=== PATIENT | female | born 1960 ===

== ENCOUNTER 2017-11-21 00:18 | Emergency (ER) | payer BC ==
--- NOTE | 2017-11-21 00:52 | ED PDOC ---
Arrival/HPI - General Historian: Patient <Reva Worrell A - Last Filed: 11/21/17 00:55> <Nura Lin - Last Filed: 11/21/17 01:35> - General Time Seen by Provider: 11/21/17 00:49 - History of Present Illness Narrative History of Present Illness (Text): 11/21/17 00:50 57yo female with past medical history of hypertension who present with complaint of insect bite to her right hand tonight. States the area was itchy before and she took Benadryl and Advil. States the itching is currently resolved and she have mild swelling to the area. She denies fever, chills, shortness of breath, drooling, tongue swelling, chest pain, any other complaint. (Reva Worrell A) Past Medical History - Provider Review Nursing Documentation Reviewed: Yes - Cardiac Hx Hypertension: Yes - Pulmonary Hx Asthma: Yes - Musculoskeletal/Rheumatological Hx Arthritis: Yes (cervical area) - Psychiatric Hx Substance Use: No - Anesthesia Hx Anesthesia: Yes <Reva Worrell - Last Filed: 11/21/17 00:55> Family/Social History - Physician Review Nursing Documentation Reviewed: Yes Family/Social History: Unknown Family HX Smoking Status: Never Smoked Hx Alcohol Use: No Hx Substance Use: No <Reva Worrell A - Last Filed: 11/21/17 00:55> Allergies/Home Meds <Reva Worrell - Last Filed: 11/21/17 00:55> <Nura Lin - Last Filed: 11/21/17 01:35> Allergies/Adverse Reactions: Allergies codeine Allergy (Verified 08/15/17 23:25) erythromycin base Allergy (Verified 08/15/17 23:25) Penicillins Allergy (Verified 08/15/17 23:25) Sulfa (Sulfonamide Antibiotics) Allergy (Verified 08/15/17 23:25) Home Medications: Home Meds Medication Instructions Recorded Confirmed Losartan 08/15/17 Proair Hfa 08/15/17 08/15/17 Singulair 08/15/17 Review of Systems - Physician Review All systems were reviewed & negative as marked: Yes - Review of Systems Constitutional: Normal Eyes: Normal ENT: Normal Respiratory: Normal Cardiovascular: Normal Gastrointestinal: Normal Genitourinary Female: Normal Musculoskeletal: Normal Skin: Other (Insect bite to right hand) Neurological: Normal Endocrine: Normal Hemo/Lymphatic: Normal Psychiatric: Normal <Reva Worrell A - Last Filed: 11/21/17 00:55> Physical Exam Vital Signs Reviewed: Yes Temperature: Afebrile Blood Pressure: Normal Pulse: Regular Respiratory Rate: Normal Appearance: Positive for: Well-Appearing, Non-Toxic, Comfortable Pain Distress: None Mental Status: Positive for: Alert and Oriented X 3 - Systems Exam Head: Present: Atraumatic, Normocephalic Pupils: Present: PERRL Extroacular Muscles: Present: EOMI Conjunctiva: Present: Normal Mouth: Present: Moist Mucous Membranes Neck: Present: Normal Range of Motion Respiratory/Chest: Present: Clear to Auscultation, Good Air Exchange. No: Respiratory Distress, Accessory Muscle Use Cardiovascular: Present: Regular Rate and Rhythm, Normal S1, S2. No: Murmurs Abdomen: No: Tenderness, Distention, Peritoneal Signs Back: Present: Normal Inspection Upper Extremity: Present: Normal ROM, NORMAL PULSES, Swelling (Mild swelling between the first and 2nd fingers noted on the volar aspect), Neurovascularly Intact. No: Cyanosis, Edema, Tenderness, Erythema Lower Extremity: Present: Normal Inspection. No: Edema Neurological: Present: GCS=15, CN II-XII Intact, Speech Normal Skin: Present: Warm, Dry, Normal Color, Other. 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 <Nura Lin - Last Filed: 11/21/17 01:35> Disposition/Present on Arrival - Present on Arrival Any Indicators Present on Arrival: No History of DVT/PE: No History of Uncontrolled Diabetes: No Urinary Catheter: No History of Decub. Ulcer: No - Disposition Have Diagnosis and Disposition been Completed?: No Disposition Time: 01:10 Patient Plan: Discharge <Reva Worrell - Last Filed: 11/21/17 00:55> <Nura Lin - Last Filed: 11/21/17 01:35> - Disposition Diagnosis: Insect bite Disposition: HOME/ ROUTINE Condition: STABLE Discharge Instructions (ExitCare): Insect Bites and Stings Additional Instructions: Follow up with your doctor Return to Emergency department for any new or worsening symptoms Prescriptions: Clindamycin [Cleocin] 150 mg PO TID #21 cap Famotidine [Pepcid] 20 mg PO DAILY #8 tab predniSONE [Prednisone] 10 mg PO BID #6 tab Referrals: Aisha Villatoro MD [Staff Provider] - Follow up with primary
[2017-11-21 00:55] VITALS: BMI 33.3
[2017-11-21 01:11] VITALS: BP 145/88; PULSE 65; RESP 18; TEMP 98.5; O2SAT 98
== END 2017-11-21 01:35 | disposition home or self-care (01) ==
LOC: ED 00:18
DX: S60.561A Insect bite (nonvenomous) of right hand, initial encounter (principal); W57.XXXA Bitten or stung by nonvenomous insect and other nonvenomous arthropods, initial encounter; Y92.9 Unspecified place or not applicable

== ENCOUNTER 2017-12-28 21:25 | Emergency (ER) | payer BC ==
[2017-12-28 21:25] VITALS: BMI 33.3
--- NOTE | 2017-12-28 22:25 | ED PDOC ---
Arrival/HPI - General Chief Complaint: Allergic Reaction Time Seen by Provider: 12/28/17 22:05 - History of Present Illness Narrative History of Present Illness (Text): 12/28/17 22:21 57 F with pmhx of htn and asthma presents to the ED with chief complaint of lightheadedness, flushed feeling, onset approx 630 pm today, associated with a tingling sensation in her throat. Patient states that she was prescribed valsartan today by her pcp, took dose at approx 3 pm. Patient reports that she had a recent trip to an ER while on vacation, was not fully seen and treated as the wait was "longer than 30 minutes", took benadryl and went home. Patient denies any dyspnea, no palpitations, no chest pain/discomfort, no diaphoresis, no cough or wheezing, no rash, no throat/pharyngeal swelling, no itchiness. PCP: Dr. Errol Rosa 12/28/17 22:34 PMHx: HTN, Asthma PFHx: +heart disease PSHx: Right Breast Lumpectomy SocHx: negative Allergies: reviewed 12/28/17 22:35 Past Medical History - Reproductive Menopause: Yes - Cardiac Hx Hypertension: Yes - Pulmonary Hx Asthma: Yes - Musculoskeletal/Rheumatological Hx Arthritis: Yes (cervical area) - Psychiatric Hx Substance Use: No - Anesthesia Hx Anesthesia: Yes Family/Social History Family/Social History: No Known Family HX Smoking Status: Never Smoked Hx Alcohol Use: No Hx Substance Use: No Allergies/Home Meds Allergies/Adverse Reactions: Allergies codeine Allergy (Verified 12/28/17 21:48) SHORTNESS OF BREATH erythromycin base Allergy (Verified 12/28/17 21:48) RASH Penicillins Allergy (Verified 12/28/17 21:48) RASH Sulfa (Sulfonamide Antibiotics) Allergy (Verified 12/28/17 21:48) RASH irbesartan Adverse Reaction (Verified 12/28/17 21:48) RASH nebivolol [From Bystolic] Adverse Reaction (Verified 12/28/17 21:48) RASH Home Medications: Home Meds Medication Instructions Recorded Confirmed Valsartan [Diovan] 1 tab PO HS 12/28/17 12/28/17 Review of Systems - Physician Review All systems were reviewed & negative as marked: Yes Physical Exam - Physical Exam Narrative Physical Exam (Text): 12/28/17 22:31 Gen: VS reviewed, alert, well developed, well nourished, nontoxic, mild distress ENT: normal pharynx, no swelling of the tongue or posterior pharynx Eye: EOMI, PERRL Neck: no JVD, supple, no adenopathy CV: regular rate, regular rhythm, no rubs,no murmur, no gallops, S1, S2, pulses equal and strong Pulm: no distress, clear to auscultation, no wheeze, no rhonchi, breath sounds equal, no rales Abd: soft, nontender, no guarding, no rebound, no rigidity, normal bowel sounds Ext: no edema Skin: good color, no rash, no cyanosis Psych: responds appropriately to questions, normal affect Neuro: oriented x3, CN2-12 intact grossly, motor intact, sensation intact Vital Signs Temp Pulse Resp BP Pulse Ox 12/29/17 00:42 98.2 F 71 17 148/78 99 12/28/17 22:00 72 17 158/72 H 99 12/28/17 21:40 98.1 F 68 20 163/80 H 98 Medical Decision Making ED Course and Treatment: 12/28/17 22:32 patient seen for near syncopal event, will check labs, cxr, ekg and place on property underwriter. no fhx of sudden cardiac . 12/28/17 23:[address] price - Lab Interpretations Lab Results: 12/28/17 23:25 12/28/17 23:25 Lab Results 12/28/17 23:25: Sodium 144, Potassium 5.0, Chloride 105, Carbon Dioxide 27, Anion Gap 17, BUN 23 H, Creatinine 0.7, Est GFR ( Amer) > 60, Est GFR ( Non-Af Amer) > 60, Random Glucose 100, Calcium 10.6 H, Magnesium 2.2, Total Bilirubin 0.4, AST 18, ALT 22, Alkaline Phosphatase 65, Troponin I < 0.01, NT- Pro-B Natriuret Pep 50.3, Total Protein 7.9, Albumin 4.8, Globulin 3.1, Albumin/ Globulin Ratio 1.5 12/28/17 23:25: PT 12.0, INR 1.05, APTT 30.3 12/28/17 23:25: WBC 10.0, RBC 4.73, Hgb 13.4, Hct 40.3, MCV 85.2, MCH 28.3, MCHC 33.3, RDW 13.2, Plt Count 380, MPV 11.2 H, Gran % 57.8, Lymph % (Auto) 35.5 H, [place] % (Auto) 5.5, Eos % (Auto) 1.0 L, Baso % (Auto) 0.2, Gran # 5.80, Lymph # (Auto) 3.6 H, [place] # (Auto) 0.6, Eos # (Auto) 0.1, Baso # (Auto) 0.02 - RAD Interpretation Narrative RAD Interpretations (Text): 12/28/17 23:12 cxr my read: no focal infiltrate, no ptx, cardiomegaly Radiology Orders: 12/28/17 22:06 CHEST PORTABLE [RAD] Stat Administrative Support Clerk: ED Physician Disposition/Present on Arrival - Present on Arrival Any Indicators Present on Arrival: No History of DVT/PE: No History of Uncontrolled Diabetes: No Urinary Catheter: No History of Decub. Ulcer: No History Surgical Site Infection Following: None - Disposition Have Diagnosis and Disposition been Completed?: Yes Diagnosis: Medication reaction Disposition: HOME/ ROUTINE Disposition Time: 19:33 Condition: IMPROVED Discharge Instructions (ExitCare): Adverse Drug Reactions, Adult (DC) Referrals: Errol Rosa DO [Family Provider] - Follow up with primary Forms: [employer] (Divehi)
--- NOTE | 2017-12-28 23:29 | ED PDOC ---
Physical Exam Vital Signs Reviewed: Yes Vital Signs Temp Pulse Resp BP Pulse Ox 12/28/17 21:40 98.1 F 68 20 163/80 H 98 Temperature: Afebrile Blood Pressure: Normal Pulse: Regular Respiratory Rate: Normal Appearance: Positive for: Well-Appearing, Non-Toxic, Comfortable Pain Distress: None Mental Status: Positive for: Alert and Oriented X 3 Medical Decision Making ED Course and Treatment: 12/28/17 23:26 Near Syncope Pending EKG, pending labs, Discussion with Dr. Rosa 12/29/17 00:19 Pending labs and callback from Dr. Rosa 12/29/17 00:[address] Rosa, and he agrees with plan of management to discharge. He will see patient in the morning, pending hematology results. 12/29/17 00:37 Labs reviewed. - Lab Interpretations Lab Results: 12/28/17 23:25 12/28/17 23:25 Lab Results 12/28/17 23:25: Sodium 144, Potassium 5.0, Chloride 105, Carbon Dioxide 27, Anion Gap 17, BUN 23 H, Creatinine 0.7, Est GFR ( Amer) > 60, Est GFR ( Non-Af Amer) > 60, Random Glucose 100, Calcium 10.6 H, Magnesium 2.2, Total Bilirubin 0.4, AST 18, ALT 22, Alkaline Phosphatase 65, Troponin I < 0.01, NT- Pro-B Natriuret Pep 50.3, Total Protein 7.9, Albumin 4.8, Globulin 3.1, Albumin/ Globulin Ratio 1.5 12/28/17 23:25: PT 12.0, INR 1.05, APTT 30.3 12/28/17 23:25: WBC 10.0, RBC 4.73, Hgb 13.4, Hct 40.3, MCV 85.2, MCH 28.3, MCHC 33.3, RDW 13.2, Plt Count 380, MPV 11.2 H, Gran % 57.8, Lymph % (Auto) 35.5 H, [place] % (Auto) 5.5, Eos % (Auto) 1.0 L, Baso % (Auto) 0.2, Gran # 5.80, Lymph # (Auto) 3.6 H, [place] # (Auto) 0.6, Eos # (Auto) 0.1, Baso # (Auto) 0.02 - RAD Interpretation Radiology Orders: 12/28/17 22:06 CHEST PORTABLE [RAD] Stat - Scribe Statement The provider has reviewed the documentation as recorded by the Scribe Carlos Mckeon All medical record entries made by the Scribe were at my direction and personally dictated by me. I have reviewed the chart and agree that the record accurately reflects my personal performance of the history, physical exam, medical decision making, and the department course for this patient. I have also personally directed, reviewed, and agree with the discharge instructions and disposition. Disposition/Present on Arrival - Present on Arrival Any Indicators Present on Arrival: No History of DVT/PE: No History of Uncontrolled Diabetes: No Urinary Catheter: No History of Decub. Ulcer: No History Surgical Site Infection Following: None - Disposition Have Diagnosis and Disposition been Completed?: Yes Diagnosis: Medication reaction Disposition: HOME/ ROUTINE Disposition Time: 00:34 Patient Plan: Discharge Discharge Instructions (ExitCare): Adverse Drug Reactions, Adult (DC) Referrals: Errol Rosa DO [Family Provider] - Follow up with primary Forms: [employer] ([place]i)
[2017-12-29 00:14] LABS: BASO # 0.02 K/mm3 (0.0-2.0); BASO % 0.2 % (0.0-3.0); EOS # 0.1 (0.0-0.7); GRAN # 5.8 (1.4-6.5); GRAN % 57.8 % (50.0-68.0); HEMOGLOBIN 13.4 g/dL (12.0-16.0); LYMPH # 3.6 (1.2-3.4); LYMPH % 35.5 % (22.0-35.0); MEAN CELL VOLUME 85.2 fl (80.0-105.0); MEAN CORPUSCULAR HEMOGLOBIN 28.3 pg (25.0-35.0); MEAN CORPUSCULAR HGB CONC 33.3 g/dl (31.0-37.0); MEAN PLATELET VOLUME 11.2 fl (7.0-11.0); MONO # 0.6 (0.1-0.6); MONO % 5.5 % (1.0-6.0); RBC 4.73 10^6/uL (3.5-6.1); RED CELL DISTRIBUTION WIDTH 13.2 % (11.5-14.5)
[2017-12-29 00:16] LABS: INR 1.05; PARTIAL THROMBOPLASTIN TIME 30.3 Seconds (25.1-36.5)
[2017-12-29 00:18] LABS: ALB/GLOB RATIO 1.5 (1.1-1.8); ALBUMIN 4.8 g/dL (3.0-4.8); ALT/SGPT 22 U/L (7-56); AST/SGOT 18 U/L (14-36); BLOOD UREA NITROGEN 23 mg/dL (7-21); CALCIUM 10.6 mg/dL (8.4-10.5); GFR NON-AFRICAN AMERICAN > 60
[2017-12-29 00:31] LABS: B-TYPE NATRIURETIC PEPTIDE 50.3 pg/mL (0-450); TROPONIN I < 0.01 ng/mL
[2017-12-29 03:55] VITALS: RESP 17; O2SAT 99
[2017-12-29 03:57] VITALS: BP 148/78; PULSE 71; TEMP 98.2
--- NOTE | 2017-12-29 11:57 | RAD ---
Date of service: 12/28/2017 HISTORY: chest pain COMPARISON: 06/21/2017 FINDINGS: LUNGS: No active pulmonary disease. PLEURA: No significant pleural effusion identified, no pneumothorax apparent. CARDIOVASCULAR: Normal. OSSEOUS STRUCTURES: No significant abnormalities. VISUALIZED UPPER ABDOMEN: Normal. OTHER FINDINGS: None. IMPRESSION: No active disease.
--- NOTE | 2017-12-29 15:39 | CARD ---
APPROVED REPORT Date of service: 12/28/2017 EKG Measurement Heart [id number] <Conclusion> Normal sinus rhythm Normal ECG
== END 2017-12-29 00:42 | disposition home or self-care (01) ==
LOC: ED 21:25
DX: R42 Dizziness and giddiness (principal); T46.5X5A Adverse effect of other antihypertensive drugs, initial encounter; I10 Essential (primary) hypertension

== ENCOUNTER 2018-06-25 09:42 | Outpatient (CLI) | payer BC | END 2018-06-25 09:43 | disposition home or self-care (01) | LOC: LAB 09:42 ==

== ENCOUNTER 2018-09-12 11:22 | Outpatient (CLI) | payer BC | END 2018-09-12 11:23 | disposition home or self-care (01) | LOC: LAB 11:22 ==